=== PATIENT | female | born 1985 ===

== ENCOUNTER 2025-05-13 11:10 | Inpatient (IN) | payer OTHER ==
[~2025-05-13] VITALS: Ht 167.6 cm; Wt 95.9 kg
[2025-05-13 13:55] VITALS: BP 108/87
[2025-05-13] MEDS ORDERED: CLOZ100 PO (15:12)
[2025-05-13] MEDS ORDERED: SERT100 PO (15:12)
[2025-05-13] MEDS ORDERED: MIRT30 PO (15:13)
[2025-05-13] MEDS ORDERED: BISA5EC PO (15:14)
[2025-05-13] MEDS ORDERED: HYDHCL25 PO (15:15)
[2025-05-13] MEDS ORDERED: Ativan1 MG PO (15:15)
[2025-05-13 15:17] VITALS: BP 108/87
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
[2025-05-13] MEDS ORDERED: Haloperidol Lactate Inj. 5 MG/ML Injection IM PRN (17:35)
[2025-05-13] MEDS ORDERED: Aluminum Hydroxide 320MG/5ML 473 ML PO PRN (17:40)
[2025-05-13] MEDS ORDERED: Polyethylene Glycol 3350 17 gm PO PRN (17:40)
[2025-05-13] MEDS ORDERED: Ondansetron 4 MG SoluTab MM PRN (17:40)
[2025-05-13] MEDS ORDERED: DiphenhydrAMINE HCl 50 MG/ML 1ML Vial IM PRN (17:40)
[2025-05-13 20:42] VITALS: BP 99/59
--- NOTE | 2025-05-14 04:06 | NUR ---
SHIFT SUMMARY PT WAS LAYING IN BED, AWAKE AT START OF SHIFT. SHE REPORTS SI, BUT STATES SHE HAS NO PLAN. DENIES ANY HI. SHE STATES SHE HAS VISUAL HALLUCINATIONS WHERE SHE SEES COLORS AND HAS AUDITORY HALLUCINATIONS THAT SHE DESCRIBES CONVERSATIONS WITH HERSELF. SHE DENIES ANY AUDITORY COMMAND HALLUCINATIONS. SPEECH AT TIMES IS TANGENTIAL. SHE STATES SHE IS FEELING BETTER AFTER RECEIVING HER ATIVAN AND HYDROXYZINE THAT WAS GIVEN ON DAY SHIFT. PT SEEMS FORGETFUL AND CHANGES HER MIND REGARDING WHEN SHE TAKES MEDICATIONS AND IF SHE WANTED PRN MEDS TO ASSIST WITH SLEEPING. SHE HAD EVENING SNACK, WAS COMPLIANT WITH MEDS AND RECEIVED PRN TRAZODONE AND MELATONIN. SHE HAS REMAINED IN BED THROUGHOUT THE NIGHT. Q15 MINUTE CHECKS TO CONTINUE PER PT SAFETY/UNIT PROTOCOL.
[2025-05-14 07:41] VITALS: BP 117/69
[2025-05-14 08:09] LABS: CHOL/HDL RATIO 6.6; Cholesterol 211 mg/dL (50-200); HDL Cholesterol 32 mg/dL (>39); LDL/HDL RATIO 4.5; Low Density Lipoprotein Chol 145 mg/dL (0-110); Triglycerides 169 mg/dL (30-140); Very Low Density Lipoprot Chol 33 mg/dL (6-28)
[2025-05-14] MEDS ORDERED: Multivitamins 1 Tab PO SCH (09:00)
--- NOTE | 2025-05-14 17:09 | NUR ---
SHIFT SUMMARY: PT ALERT, ORIENTED AND COOPERATIVE WITH CARE. DENIES SI AND HI. STATED THAT SHE HAS HALLUCINATIONS AT TIMES BUT DENIES TODAY. PT C/O HEADACHE AND ACHING TODAY. SHE WAS MEDICATED WITH PRN PER EMAR AND REPORTED RELIEF OF THE DISCOMFORT. PT WAS ACTIVE IN THE UNIT MILIEU, ATTENDED GROUPS AND MEALS. PT SHOWERED THIS AM. SPENT TIME WALKING IN THE HALLS TALKING WITH PEERS AND IN THE DAY ROOM WATCHING TV.
[2025-05-14 21:09] VITALS: BP 114/68
--- NOTE | 2025-05-15 04:05 | NUR ---
SHIFT SUMMARY PT IN HER ROOM READING AT THE START OF SHIFT. SHE REPORTS THAT SHE HAD A GOOD DAY AND IS FEELING BETTER. SHE DENEIS ANY CURRENT SI, HI, THOUGHTS OF SELF HARM OR VISUAL HALLUCINATIONS. SHE STATES THE VOICES IN HER HEAD NEVER GO AWAY. SHE IS COOPERATIVE WITH CARE. SHE SPENT TIME IN THE GROUP ROOM, INTERACTING WITH PEERS. SHE WAS COMPLIANT WITH MEDICATIONS, AND RECEIVED PRN TRAZODONE AND MELATONIN. SHE HAD EVENING SNACK AND WENT TO BED. SHE HAS REMAINED IN BED THROUGHOUT THE NIGHT. Q15 MINUTE CHECKS TO CONTINUE PER PT SAFETY/UNIT PROTOCOL.
[2025-05-15 08:48] VITALS: BP 123/69
--- NOTE | 2025-05-15 17:11 | NUR ---
SHIFT SUMMARY: PT ALERT, ORIENTED AND COOPERATIVE WITH CARE. SHE DENIES SI AND HI. PT ATTENDED MEALS AND GROUPS. SHE C/O GENERALIZED BODY ACHES THIS AM AND WAS MEDICATED WITH TYLENOL PRN PER EMAR. REPORTED RELIEF FROM PAIN AFTER. PT WAS ACTIVE IN THE UNIT MILIEU. SHE SPENT TIME IN THE DAY ROOM WATCHING TV AND TALKING WITH PEERS AND STAFF. PT SHOWERED IN THE EVENING BEFORE DINNER.
[2025-05-15 19:15] VITALS: BP 116/69
--- NOTE | 2025-05-16 05:07 | NUR ---
SHIFT SUMMARY: PT A/O X4. DENIES TO BE SI, HI AND AVH. PT IN DINING AREA FOR DINNER THE BEGINNING OF THE SHIFT. PT CALM, ANSWERS QUESTIONS, ELATED MOOD. GOOD JUDGEMENT. MED COMPLIANT AND COOPERATIVE. SLEPT WELL SINCE GOING TO BED AROUND 2200. WILL CONTINUE TO MONITOR.
[2025-05-16 09:10] VITALS: BP 131/82
--- NOTE | 2025-05-16 17:00 | NUR ---
SHIFT ASSESSMENT: PT CAME TO THE NURSES STATION AND SAID SHE NEEDED TO FILE A FORMAL COMPLAINT. "I THOUGHT I WAS GOING TO GET A ROOM MATE." THEN SHE LAUGHED. SHE WAS IN GOOD HUMOR ALL MORNING. SHE DENIED SI, HI AND PHYSICAL PAIN. SHE ENDORSED AUDITORY HALLUCINATIONS, "THE PRIMARY ONE SAYS SHE IS MY BIO MOM AND SHE ALWAYS CORRECTS ME. SHE SAID HER MOOD IS, "TIRED...HAPPY." 15:00 PT HAD A MELT DOWN, "MY WENT ACROSS MY MIND AND I KNOW HE IS TALKING ABOUT OUR PERSONAL FAMILY THINGS TO HIS FRIENDS." SHE WAS CRYING IN THE HALLWAY. SHE WAS GIVEN HYDROXYZINE 50MG. SHE APEARED TO BE OK FOR A WHILE THEN AT 1650 SHE GOT OFF OF A PHONE CALL WITH HER AND WAS UPSET THAT "HE HASN'T BEEN TAKING HIS MEDS." AFTER ENCOURAGING THE PT TO TAKE CARE OF HER OWN MENTAL HEALTH SHE SETTLED DOWN AND SAID SHE WAS GOING TO JOURNAL HER UPSET.SHE IS LAYING ON HER BED WRITING AT THIS TIME.
--- NOTE | 2025-05-17 05:10 | NUR ---
SHIFT SUMMARY Pt is A&O, calm, cooperative, eye contact is good. Pt s mood is fair, affect is constricted. Pt denies SI, HI, and AH. She endorsed VH of seeing vivid colors. Pt denies current pain. Pt stated that she had spoken with her on the phone and said that I was hard on him and was crying afterwards. Pt reported feeling anxious. Pt was active on milieu, walking the hallway with a peer most of the evening. PRN trazodone and melatonin given with HS meds. Staff continues to monitor q15m for safety and wellness.
[2025-05-17 08:42] VITALS: BP 113/75
--- NOTE | 2025-05-17 16:12 | NUR ---
SHIFT SUMMARY PT A/O X4; PLEASANT AND COOPERATIVE WITH CARE. SHE DENIES SI AND HI AT THIS TIME. SHE REPORTS AUDITORY AND VISUAL HALLUCINATIONS BUT IS NOT BOTHERED BY THEM. SHE SAYS THAT HER HALLUCINATIONS ARE PLEASANT FOR THE MOST PART AND SHE OFTEN JUST RENO WITH THEM. SHE SAYS THAT SHE IS HOPING TO HAVE A BETTER DAY AND BE ABLE TO HAVE A GOOD PHONE CALL WITH HER SINCE IT'S HER BIRTHDAY. SHE PARTICIPATED IN ALL GROUPS AND MEALS THIS SHIFT. SHE CONTINUES TO BE MONITORED Q15 FOR SAFETY AND WELLNESS.
[2025-05-17 19:27] VITALS: BP 116/73
--- NOTE | 2025-05-18 05:49 | NUR ---
SHIFT SUMMARY Pt is A&O, calm, cooperative, eye contact is good. Pt s mood is tired, affect is blunted. Pt denies SI and HI, but stated that she did have some thoughts of self-harm earlier in the day. Pt endorses AH of voices and VH not so much, anymore. Pt denies current pain or other medical issues. Pt stated that she woke up tired and didn t sleep well. Her plan upon d/c is to return home with her and daughter and that her son will return home the next day so as not to overwhelm the patient the first day. Pt stated that she will be safe returning home. Pt was active on the milieu during the evening, watching TV with peers. She retired to her room at about 2200 and remained there for the rest of the shift. Staff continues to monitor q15m for safety and wellness.
[2025-05-18 08:48] VITALS: BP 108/75
--- NOTE | 2025-05-18 16:54 | NUR ---
SHIFT SUMMARY PT A/O X4; PLEASANT AND COOPERATIVE WITH CARE. SHE REPORTS BEING "HAPPY" THIS SHIFT AND FEELS THAT SHE HAS A GOOD PLAN FOR DISCHARGE. SHE DENIES SI/HI BUT ENDORSES AH AND VH. PT STATES THAT JOURNALING HELPS HER TO COPE WITH THE HALLUCINATIONS AND HER TRAUMA. SHE ATTENDS ALL GROUPS AND MILIEU ACTIVITIES. PT TO POTENTIALLY DISCHARGE HOME TOMORROW.
[2025-05-18 19:58] VITALS: BP 118/73
--- NOTE | 2025-05-19 05:59 | NUR ---
SHIFT SUMMARY Pt is A&O, calm, cooperative, eye contact is good. Pt s mood is happy, affect is constricted. Pt denies SI, HI, and VH, but endorses AH of voices. Pt denies current pain or other medical issues. Pt stated that she is nervous about going home. Pt said that before her admission, she had a bad argument with her , but that it should be okay now. Pt is looking forward to seeing her children after discharge. Pt was active on the milieu during the evening, pleasantly interacting with peers and staff. PRN melatonin and trazodone given HS. Staff continues to monitor q15m for safety and wellness.
[2025-05-19 08:58] VITALS: BP 123/74
--- NOTE | 2025-05-19 16:51 | NUR ---
SHIFT SUMMARY PT AxOx4. PLEASANT AND COOPERATIVE WITH CARE. PT REPORTS "GOOD" MOOD TODAY AND DENIED SI/HI AND AVTH. SHE HAS BEEN FOLLOWING HER TREATMENT PLAN INCLUDING TAKING MEDICATIONS PRESCRIBED, ATTENDING ALL MILIEU THERAPY GROUPS WELL MINGLING APPROPRIATELY WITH PEERS/STAFF. PT DENIES SIDE EFFECT FROM MEDS. PT IS ANTICIPATING DC TOMORROW. SHE IS AGREEABLE AND LOOKING FORWARD TO THIS PLAN. PT IS CURRENTLY WALKING IN THE SOLORIO WITH ANOTHER PATIENT, LAUGHING AND CHATTING CHEERFULLY. DENIES ANY NEEDS AT THIS TIME.
[2025-05-19 19:04] VITALS: BP 117/76
--- NOTE | 2025-05-20 05:41 | NUR ---
SHIFT SUMMARY Pt is A&O, calm, cooperative, eye contact is good. Pt s mood is pleasant, happy, affect is broad and euthymic. Pt denies SI, HI, and VH, but endorses AH of voices. Pt endorses body ache 3/10w and requested PRN APAP at 1955, which was effective. She denies any other medical issues. Pt stated that she is nervous about going home, but that "I miss my babies." Pt was active on the unit during the evening, pleasantly interacting with peers and staff. PRN melatonin and trazodone given HS. Staff continues to monitor q15m for safety and wellness.
--- NOTE | 2025-05-20 07:47 | NUR ---
IMPORTANT DISCHARGE INFORMATION PATIENT TO BE DISCHARGED TODAY. RIDE LINE TO PICK HER UP AT 9:30AM. TRANSPORTATION . ALL PARTIES VERBALIZE AN UNDERSTANDING OF DISCHARGE PLAN OF CARE. PATIENT HAS BEEN REFERRED TO [facility] FOR CONTINUED FOLLOW UP CARE. PHARMACY: [facility] FAX
[2025-05-20 08:51] VITALS: BP 123/85
[2025-05-20] MEDS ORDERED: MELA3 PO (08:53)
[2025-05-20] MEDS ORDERED: TRAZ50 PO (08:54)
[2025-05-20] MEDS ORDERED: CLON1 PO (08:57)
--- NOTE | 2025-05-20 11:09 | NUR ---
DISCHARGE NOTE PT AxOx4. PLEASANT AND COOPERATIVE WITH CARE. PT IS DISCHARGING TODAY HOME WITH HER AND DAUGHTER. SHE DENIED SI/HI AND AVTH. SHE REPORTS HER MOOD TO BE "GOOD AND READY TO GO HOME." HER DEMEANOR WAS CHEERFUL AND FRIENDLY. SHE HAS BEEN FOLLOWING HER TREATMENT PLAN INCLUDING TAKING MEDICATIONS PRESCRIBED, ATTENDING ALL MILIEU THERAPY GROUPS AND MINGLING APPROPRIATELY WITH STAFF/PEERS. DISCHARGE INSTRUCTIONS DISCUSSED WITH PATIENT INCLUDING MENTAL HEALTH FOLLOW UP INFO, DC MEDICATION LIST AND PATIENT EDUCATION ON DIAGNOSES AND NEW MEDS. PT VERBALIZED UNDERSTANDING. A SAFETY PLAN WAS COMPLETED WITH PATIENT AND THIS RN. HER BELONGINGS WERE RETURNED AND SHE WAS SAFELY ESCORTED OUT TO MEET WITH TRANSPORTATION AT APPROX 0940.
== END 2025-05-20 09:42 | disposition home or self-care (01) | DRG 885 ==
LOC: BHU 11:10
PROVIDERS: ADMIT Psychiatry & Neurology Psychiatry
DX: F25.0 Schizoaffective disorder, bipolar type (principal); R45.851 Suicidal ideations; Z98.891 History of uterine scar from previous surgery; Z79.899 Other long term (current) drug therapy
CPT/HCPCS: 80061; 83036; A9270